=== PATIENT | male | born 1945 ===

== ENCOUNTER 2019-03-28 15:05 | Emergency (ER) | payer MEDICARE ==
[2019-03-28 15:15] VITALS: BMI 43.0
[2019-03-28] MEDS ORDERED: Sodium Chloride 0.9% 500 ML IV ONE ×2 (15:37→20:01)
[2019-03-28 15:48] LABS: BASO # 0.1 K/uL (0.0-0.2); BASO % 0.5 % (0.0-2.0); EOS % 0.1 % (0.0-4.0); HEMOGLOBIN 14.4 g/dL (12.0-18.0); LYMPH # 0.7 K/uL (1.0-4.3); LYMPH % 5.7 % (20.0-40.0); MEAN CELL VOLUME 90.4 fL (80.0-94.0); MEAN CORPUSCULAR HEMOGLOBIN 31.5 pg (27.0-31.0); MEAN CORPUSCULAR HGB CONC 34.8 g/dL (33.0-37.0); MEAN PLATELET VOLUME 9.6 fL (7.2-11.7); MONO # 1.1 K/uL (0.0-0.8); MONO % 9.2 % (0.0-10.0); NEUT # 10.5 K/uL (1.8-7.0); NEUT % 84.5 % (50.0-75.0); NRBC % 0.1 % (0.0-2.0); PLATELET COUNT 140 K/uL (130-400); RBC 4.56 Mil/uL (4.40-5.90); WHITE BLOOD COUNT 12.4 K/uL (4.8-10.8)
[2019-03-28 16:04] LABS: ALBUMIN 3.9 g/dL (3.5-5.0); ALT/SGPT 31 U/L (21-72); AST/SGOT 28 U/L (17-59); BLOOD UREA NITROGEN 17 mg/dL (9-20); CALCIUM 8.8 mg/dl (8.6-10.4); GFR NON-AFRICAN AMERICAN > 60
[2019-03-28 16:05] LABS: VENOUS BLOOD GAS BASE EXCESS -0.1 mmol/L (0.0-2.0); VENOUS BLOOD GAS PCO2 36 mmHg (40-60); VENOUS BLOOD GAS PO2 47 mm/Hg (30-55); VENOUS BLOOD PH 7.43 (7.32-7.43)
[2019-03-28 16:08] LABS: BANDS 2 % (0-2); LYMPHOCYTE 5 % (20-40); MONOCYTE 11 % (0-10); NEUTROPHIL 82 % (50-75); PLATELET ESTIMATE NORMAL (NORMAL); TOTAL CELLS COUNTED 100
[2019-03-28 16:09] LABS: ANISOCYTOSIS SLIGHT; LARGE PLATELETS PRESENT
--- NOTE | 2019-03-28 16:12 | C.PDOC ---
History Of Present Illness 73 year old male with PMHx of gastritis and HTN presents to the ED complaining of fever and chills since last night. Associated symptoms include nonproductive cough and nausea. Patient also notes he had 2 episodes of peeing spontaneously. He denies any shortness of breath, chest pain, sore throat, ear pain, vomiting, diarrhea, sick contacts. Reports he takes occasional Nitroglycerin spray for chest discomfort, last used 5 days ago. Patient recently arrived from [facility] and is visiting family. He was seen by PMD Dr. Springer after arrival from [facility] and test results showed he had an UTI and was prescribed antibiotics, which he finished 5 days ago. Time Seen by Provider: 03/28/19 15:32 Chief Complaint (Nursing): Fever History Per: Patient History/Exam Limitations: no limitations Onset/Duration Of Symptoms: Days Current Symptoms Are (Timing): Still Present Severity: Moderate Past Medical History Reviewed: Historical Data, Nursing Documentation, Vital Signs Vital Signs: Last Vital Signs Temp 102.6 F H 03/28/19 15:15 Pulse 94 H 03/28/19 15:15 Resp 18 03/28/19 15:15 BP 148/77 03/28/19 15:15 Pulse Ox 95 03/28/19 15:15 Primary Care Provider: Alen Springer - Medical History PMH: Gastritis, HTN Family History: States: No Known Family Hx - Social History Hx Alcohol Use: No Hx Substance Use: No Review Of Systems Constitutional: Positive for: Fever, Chills ENT: Negative for: Ear Pain, Throat Pain Cardiovascular: Negative for: Chest Pain Respiratory: Positive for: Cough. Negative for: Shortness of Breath Gastrointestinal: Positive for: Nausea. Negative for: Vomiting, Abdominal Pain, Diarrhea Physical Exam - Physical Exam Appears: Non-toxic, No Acute Distress, Other (comfortable, obese) Skin: Warm, Dry, No Rash Head: Normacephalic Eye(s): bilateral: Normal Inspection Oral Mucosa: Moist Neck: Supple Chest: Symmetrical Cardiovascular: Rhythm Regular Respiratory: Normal Breath Sounds, No Rales, No Rhonchi, No Wheezing, Other (CTA B/L ) Gastrointestinal/Abdominal: Bowel Sounds, Soft, Tenderness (Mild RLQ and suprapubic tenderness ), No Distention, No Guarding, No Rebound Back: Normal Inspection, No CVA Tenderness Neurological/Psych: Oriented x3 Gait: Steady ED Course And Treatment - Laboratory Results Result Diagrams: 03/28/19 15:42 03/28/19 15:42 O2 Sat by Pulse Oximetry: 95 (RA) Pulse Ox Interpretation: Normal Progress Note: Blood work, CXR, UA ordered and reviewed. Disposition - Disposition Disposition Time: 19:00 Condition: STABLE Forms: [facility] (Lebanese) - Clinical Impression Clinical Impression: Fever - Scribe Statement The provider has reviewed the documentation as recorded by the Scribcandi Bonilla All medical record entries made by the Dayamiibe were at my direction and personally dictated by me. I have reviewed the chart and agree that the record accurately reflects my personal performance of the history, physical exam, medical decision making, and the department course for this patient. I have also personally directed, reviewed, and agree with the discharge instructions and dis position. Physician Patient Turnover Patient Signed Over To: Luis Palacios Handoff Comments: pending ct scan
--- NOTE | 2019-03-28 16:34 | RAD ---
HISTORY: fever COMPARISON: None available. TECHNIQUE: Chest, one view. FINDINGS: Examination limited by habitus. LUNGS: Mild basilar atelectasis. Please note that chest x-ray has limited sensitivity for the detection of pulmonary masses. PLEURA: No significant pleural effusion identified. No definite pneumothorax . CARDIOVASCULAR: Cardiomegaly. Atherosclerotic calcifications of the aorta. OSSEOUS STRUCTURES: No acute osseous abnormality identified. VISUALIZED UPPER ABDOMEN: Unremarkable. OTHER FINDINGS: None. IMPRESSION: Cardiomegaly. Mild basilar atelectasis.
[2019-03-28 16:47] LABS: SQUAMOUS EPITHIAL < 1 /hpf (0-5); URINE BILIRUBIN NEGATIVE (NEGATIVE); URINE BLOOD 1+ (NEGATIVE); URINE CLARITY Clear (Clear); URINE COLOR Yellow (YELLOW); URINE GLUCOSE (UA) 3+ mg/dL (Normal); URINE LEUKOCYTE ESTERASE 1+ Leu/uL (Negative); URINE PROTEIN NEGATIVE (NEGATIVE); URINE UROBILINOGEN NORMAL mg/dL (0.2-1.0)
[2019-03-28] MEDS ORDERED: (Novolin R) Insulin Human Regular 100 units/ml vial IVP ONE ×2 (17:01→20:01)
[2019-03-28] MEDS ORDERED: (Novolin R) Insulin Human Regular 100 units/ml vial ONE ×2 (17:12→20:14)
[2019-03-28] MEDS ORDERED: cefTRIAXone IV 1 gm in Dextros 50 ML IV ONE (19:03)
[2019-03-28 20:33] VITALS: RESP 16; O2SAT 96
[2019-03-28 21:45] VITALS: BP 121/76; PULSE 82; TEMP 99
--- NOTE | 2019-03-29 09:44 | CT ---
Date of service: 03/28/2019 PROCEDURE: CT Abdomen and Pelvis without intravenous contrast HISTORY: Suprapubic and left lower quadrant abdominal pain. COMPARISON: None. TECHNIQUE: Multiple contiguous axial images were performed through the abdomen and pelvis without the use of intravenous contrast. Subsequently, sagittal and coronal reformatted images were obtained.. Radiation dose: Total exam DLP = 1406.38 mGy-cm. This CT exam was performed using one or more of the following dose reduction techniques: Automated exposure control, adjustment of the mA and/or kV according to patient size, and/or use of iterative reconstruction technique. FINDINGS: LOWER THORAX: 3 millimeter granuloma at the right lung base. Scattered bronchiectasis. 2 millimeter subpleural nodule within the right lower lobe on series 3, image 19. Coronary calcifications. LIVER: Fatty infiltration of the liver. Focal fatty sparing adjacent to the gallbladder fossa. GALLBLADDER AND BILE DUCTS: Unremarkable. PANCREAS: Unremarkable. No gross lesion or ductal dilatation. SPLEEN: Punctate splenic hypodensities, too small to adequately characterize. ADRENALS: Unremarkable. No mass. KIDNEYS AND URETERS: Mild right perinephric fat stranding which may represent mild pyelonephritis versus recently passed calculus. This is nonspecific. Clinical correlation. Correlation with contrast-enhanced CT may be helpful if clinically indicated. VASCULATURE: Unremarkable. No aortic aneurysm. Aortic atherosclerotic calcification or mural plaque present. BOWEL: Unremarkable. No obstruction. No gross mural thickening. APPENDIX: Not well visualized. PERITONEUM: Unremarkable. No free fluid. No free air. LYMPH NODES: Unremarkable. No enlarged lymph nodes. BLADDER: Unremarkable. REPRODUCTIVE: Heterogeneous prostate and seminal vesicles. BONES: Degenerative changes in the spine. Bridging sclerosis of the left SI joint. Multilevel posterior disc osteophyte complexes seen throughout the thoracic and lumbar spine. Retrolisthesis of L3 on L4. OTHER FINDINGS: Small fat containing bilateral inguinal hernias. Small to moderate fat containing umbilical hernia. IMPRESSION: 1. Nonspecific right perinephric fat stranding. This may be secondary to pyelonephritis or recently passed calculus. Clinical correlation. Consider correlation with contrast-enhanced CT scan if clinically indicated. 2. Prominent liver with fatty infiltration. 3. Small to moderate fat containing umbilical hernia. 4. Small fat containing bilateral inguinal hernias. Additional findings as above. A preliminary report was generated at 7:08 p.m. on 03/28/[address] Wes Cifuentes from [employer]
== END 2019-03-28 21:45 | disposition home or self-care (01) ==
LOC: C.ER 15:05
DX: N39.0 Urinary tract infection, site not specified (principal); R50.9 Fever, unspecified; I10 Essential (primary) hypertension
CPT/HCPCS: 71045; 74176; 80053; 81001; 82803; 82948; 85025; 87040; 87086; 87181; 87205; 87804; 96361; 96374; 96375; 99285; J0696; J7040

== ENCOUNTER 2019-03-29 20:33 | Inpatient (IN) | payer MEDICARE | END 2019-04-02 15:30 | disposition home or self-care (01) | LOC: C.3T 03-31 00:10 → C.ER 20:33 → C.9E 22:34 → C.3T 22:57 ==